=== PATIENT | female | born 1940 | race Asian ===

== ENCOUNTER 2022-01-06 15:43 | Observation (INO) | payer OTHER ==
[2022-01-06 16:57] LABS: ALT (SGPT) Less than 6 U/L (8-55); AST (SGOT) 9 U/L (5-34); Albumin 3.3 g/dL (3.4-4.8); Alkaline Phosphatase 67 U/L (40-110); Anion Gap 15 mmol/L (10-20); BUN (Urea Nitrogen) 54 mg/dL (9.8-20.1); Bilirubin, Total 0.5 mg/dL (0.2-1.2); Calc. Creatinine Clearance 0 mL/min (70-130); Calcium 9.4 mg/dL (7.8-10.44); Carbon Dioxide 16 mmol/L (23-31); Chloride 108 mmol/L (98-107); Estimated GFR 21; Globulin 3.8 g/dL (2.4-3.5); Glucose 135 mg/dL (83-110); Potassium 4.7 mmol/L (3.5-5.1); Protein, Total 7.1 g/dL (5.8-8.1); Sodium 134 mmol/L (136-145)
[2022-01-06 17:12] LABS: Hemoglobin 3.6 g/dL (12.0-15.5); Mean Corpuscular Hemoglobin 25.7 pg (27.0-33.0); Mean Corpuscular Volume 82.9 fl (81.6-98.3); Platelet Count 35 10x3/uL (150-450); RBC Distribution Width 24.6 % (11.5-14.5); White Blood Cell (WBC) Count 2.3 10x3/uL (3.5-10.5)
[2022-01-06 17:14] LABS: MDiff Complete? YES
[2022-01-06 18:21] LABS: Band 18 % (5-11); Lymphocytes 16 % (21-51); Monocytes 16 % (0-10); Neutrophil 48 % (42-75)
[2022-01-06 18:24] LABS: Anisocytosis SLIGHT = 6-15 cells (100X) (0-5/hpf); Poikilocytosis SLIGHT = 6-15 cells (100X) (0-5/hpf); Reflex for Review?? YES
[2022-01-06 18:26] LABS: Hypochromia SLIGHT = 6-15 cells (100X) (0-5/hpf)
[2022-01-06 18:27] LABS: Platelet Morphology Comment Appears Decreased
[2022-01-06] MEDS ORDERED: Acetaminophen 325 MG TAB PO PRN (19:36)
[2022-01-06] MEDS ORDERED: Furosemide 20 MG/2 ML VIAL SLOW IVP SCH (19:45)
[2022-01-06] MEDS: Carbidopa/Levodopa 10-100 mg Tablet PO SCH (21:23)
[2022-01-06 21:33] LABS: SARS-CoV-2 NAA Rapid Test DETECTED (NotDetected)
[2022-01-07 06:24] LABS: Hemoglobin 8.4 g/dL (12.0-15.5); Mean Corpuscular HGB CONC 33.1 g/dL (32.0-36.0); Mean Corpuscular Hemoglobin 29.2 pg (27.0-33.0); Mean Corpuscular Volume 88.2 fl (81.6-98.3); Platelet Count 18 10x3/uL (150-450); RBC Distribution Width 17.5 % (11.5-14.5); Red Blood Cell (RBC) Count 2.88 10x6/uL (3.90-5.03); White Blood Cell (WBC) Count 2.1 10x3/uL (3.5-10.5)
[2022-01-07 06:28] VITALS: BMI 18.3
[2022-01-07 06:37] LABS: Anion Gap 16 mmol/L (10-20); BUN (Urea Nitrogen) 49 mg/dL (9.8-20.1); Calc. Creatinine Clearance 17 mL/min (70-130); Calcium 9.2 mg/dL (7.8-10.44); Carbon Dioxide 16 mmol/L (23-31); Chloride 109 mmol/L (98-107); Estimated GFR 27; Glucose 120 mg/dL (83-110); Potassium 4.6 mmol/L (3.5-5.1); Sodium 136 mmol/L (136-145)
[2022-01-07 07:05] LABS: MDiff Complete? YES
[2022-01-07 07:12] LABS: Band 27 % (5-11); Eosinophils 1 % (0-10); Lymphocytes 8 % (21-51); Metamyelocyte 5 % (0-0); Monocytes 2 % (0-10); Myelocyte 6 % (0-0); Neutrophil 49 % (42-75); Nucleated RBC 3 % (0); Reactive Lymphocytes 2 % (0-10)
[2022-01-07 07:14] LABS: Anisocytosis SLIGHT = 6-15 cells (100X) (0-5/hpf)
[2022-01-07 07:15] LABS: Ovalocytes SLIGHT = 2-5 cells (100X) (0-1/hpf); Platelet Morphology Comment Appears Decreased; Tear Drops SLIGHT = 2-5 cells (100X) (0-1/hpf)
[2022-01-07] MEDS: Carbidopa/Levodopa 10-100 mg Tablet PO SCH (08:12)
[2022-01-07 08:51] VITALS: BP 136/55; TEMP 98
[2022-01-07 09:01] LABS: Hemoglobin 8.3 g/dL (12.0-15.5); Mean Corpuscular HGB CONC 32.8 g/dL (32.0-36.0); Mean Corpuscular Hemoglobin 28.8 pg (27.0-33.0); Mean Corpuscular Volume 87.8 fl (81.6-98.3); Platelet Count 16 10x3/uL (150-450); RBC Distribution Width 17.5 % (11.5-14.5); Red Blood Cell (RBC) Count 2.88 10x6/uL (3.90-5.03); White Blood Cell (WBC) Count 2.5 10x3/uL (3.5-10.5)
[2022-01-07 09:11] LABS: MDiff Complete? YES
[2022-01-07 09:18] LABS: Band 24 % (5-11); Lymphocytes 9 % (21-51); Metamyelocyte 5 % (0-0); Monocytes 5 % (0-10); Myelocyte 5 % (0-0); Neutrophil 50 % (42-75); Nucleated RBC 3 % (0); Reactive Lymphocytes 2 % (0-10)
[2022-01-07 09:19] LABS: Anisocytosis SLIGHT = 6-15 cells (100X) (0-5/hpf); Ovalocytes SLIGHT = 2-5 cells (100X) (0-1/hpf); Platelet Morphology Comment Appears Decreased
[2022-01-07 09:20] LABS: Tear Drops SLIGHT = 2-5 cells (100X) (0-1/hpf)
== END 2022-01-07 10:22 | disposition home or self-care (01) ==
LOC: CSHERS 15:43 → INTOOBSV 18:40 → CSHTELE 18:40 → CSHIMCU 20:43
PROVIDERS: ADMIT Family Medicine; ATTEND Family Medicine
DX: D75.81 Myelofibrosis (principal); D64.9 Anemia, unspecified; G20 Parkinson's disease; N18.4 Chronic kidney disease, stage 4 (severe); F03.90 Unspecified dementia, unspecified severity, without behavioral disturbance, psychotic disturbance, mood disturbance, and anxiety; Z79.899 Other long term (current) drug therapy; Z20.822 Contact with and (suspected) exposure to COVID-19
CPT/HCPCS: 36430; 80048; 80053; 85025 ×2; 86850; 86900; 86901; 86920; 93005; 99218 ×2; G0378; P9016 ×2; U0002; 36415; 85060; J1940